=== PATIENT | female | born 1960 | race Caucasian/White ===

== ENCOUNTER 2016-04-23 17:09 | Observation (INO) | payer OTHER ==
[~2016-04-23] VITALS: Ht 124.5 cm; Wt 61.1 kg
[2016-04-23 17:47] LABS: CHLORIDE 108 mEq/L (99-109); POTASSIUM 4.1 mEq/L (3.7-5.4); SODIUM 142 mEq/L (136-147)
[2016-04-23 17:49] LABS: GLUCOSE 97 mg/dL (70-99)
[2016-04-23 17:50] LABS: ANION GAP 9 MEQ/L (2-14)
[2016-04-23 17:51] LABS: HEMATOCRIT 21.4 % (36.0-46.0); MCH 14.5 PG (29.0-34.0); MCHC 25.2 G/DL (30.0-36.0); MCV 57.4 FL (83-99); MEAN PLAT.VOLUME 9.3 uM^3 (9.5-12.4); PLATELET COUNT 336 K/uL (156-360); RBC DIS.WIDTH-CV 21.8 % (11.8-14.6); RBC DIS.WIDTH-SD 42.7 % (39-53); RED BLOOD COUNT 3.73 M/uL (3.80-5.20); WHITE BLOOD COUNT 6.6 K/uL (4.1-10.2)
[2016-04-23 17:53] LABS: GFR ESTIMATE (CALCULATED) > 59 mL/min/
[2016-04-23 17:54] LABS: UREA NITROGEN (BUN) 20 mg/dL (9-23)
[2016-04-23 18:08] LABS: INTER. NORMALIZED RATIO 1.1; PROTHROMBIN TIME 10.9 (9.2-11.2)
[2016-04-23 19:22] LABS: CHLORIDE 108 mEq/L (99-109); POTASSIUM 3.3 mEq/L (3.7-5.4); SODIUM 141 mEq/L (136-147)
[2016-04-23 19:23] LABS: GLUCOSE 92 mg/dL (70-99)
[2016-04-23 19:25] LABS: ANION GAP 9 MEQ/L (2-14)
[2016-04-23 19:27] LABS: GFR ESTIMATE (CALCULATED) > 59 mL/min/
[2016-04-23 19:28] LABS: UREA NITROGEN (BUN) 14 mg/dL (9-23)
[2016-04-23 19:29] VITALS: BP 143/75
[2016-04-23 19:51] VITALS: BP 156/82
[2016-04-23 20:36] VITALS: BP 151/88
[2016-04-23] MEDS ORDERED: KENALOG,ARISTOC80 GM TP (21:01)
[2016-04-23] MEDS ORDERED: MOBIC7.5 MG PO (21:01)
[2016-04-23] MEDS ORDERED: BETIMOL 0.100 DROP/5 LEFT EYE (21:02)
[2016-04-23] MEDS ORDERED: BUSPAR10 MG PO (21:02)
[2016-04-23] MEDS ORDERED: PRILOSEC20 MG PO (21:02)
[2016-04-23] MEDS ORDERED: LEXAPRO10 MG PO (21:03)
[2016-04-23] MEDS ORDERED: TIMOLOL MALEATE15 M1 LEFT EYE (21:04)
[2016-04-23] MEDS ORDERED: TIMOPTIC-0100 DROP/1 LEFT EYE (21:06)
[2016-04-23 21:36] VITALS: BP 153/95
[2016-04-23 22:36] VITALS: BP 155/74
[2016-04-23 22:52] LABS: IRON 20 MCG/DL (35-150)
[2016-04-23 23:11] LABS: FERRITIN 1 NG/ML (10-291)
[2016-04-24] VITALS (10 sets, daily range): BP systolic 119–203; BP diastolic 56–91
[2016-04-24 03:42] LABS: HEMATOCRIT 26.5 % (36.0-46.0)
[2016-04-24 03:45] LABS: MCV 62.9 FL (83-99)
[2016-04-24 10:49] LABS: ANION GAP 7 MEQ/L (2-14); CHLORIDE 110 MEQ/L (99-109); GFR ESTIMATE (CALCULATED) > 59 mL/min/; GLUCOSE 87 mg/dL (70-99); SAMPLE HEMOLYSIS CHECK 0; SAMPLE ICTERIC CHECK 0; SAMPLE LIPEMIA CHECK 0; SODIUM 141 MEQ/L (136-147); UREA NITROGEN (BUN) 19 mg/dL (9-23)
[2016-04-24 10:50] LABS: POTASSIUM 4.8 MEQ/L (3.7-5.4)
[2016-04-24 11:28] LABS: HEMATOCRIT 30.6 % (36.0-46.0); MCH 19.5 PG (29.0-34.0); MCHC 29.7 G/DL (30.0-36.0); MCV 65.7 FL (83-99); PLATELET COUNT UNABLE TO REPORT K/uL (156-360); RBC DIS.WIDTH-CV 24.9 % (11.8-14.6); RBC DIS.WIDTH-SD 59.4 % (39-53); RED BLOOD COUNT 4.66 M/uL (3.80-5.20); WHITE BLOOD COUNT 5.8 K/uL (4.1-10.2)
[2016-04-24] MEDS ORDERED: FERROUS SULFAT325 MG PO (14:15)
[2016-04-24] MEDS ORDERED: COLACE100 MG PO (14:16)
== END 2016-04-24 20:05 | disposition home or self-care (01) ==
LOC: EME 17:09 → EDOF 21:54 → 5WEST 23:24
PROVIDERS: Emergency Medicine; Hospitalist
PROC: 30233N1 Transfusion of Nonautologous Red Blood Cells into Peripheral Vein, Percutaneous Approach (ICD-10-PCS; principal; 2016-04-23)
DX: D50.9 Iron deficiency anemia, unspecified (principal); E87.6 Hypokalemia; R06.02 Shortness of breath; R53.83 Other fatigue; R51 Headache; Q85.8 Other phakomatoses, not elsewhere classified; G96.19 Other disorders of meninges, not elsewhere classified; G80.8 Other cerebral palsy; H40.9 Unspecified glaucoma; Z82.49 Family history of ischemic heart disease and other diseases of the circulatory system
CPT/HCPCS: 74176; 80048; 80048 91; 82607; 82728; 83540; 84466; 85014; 85018; 85027; 85610; 85730; 86850; 86900; 86901; 86920; 99281; 99285; C9113; G0378; J1756; J7050; P9016